=== PATIENT | male | born 1970 ===

== ENCOUNTER 2020-04-15 17:47 | Emergency (ER) | payer SELFPAY ==
[2020-04-15] MEDS ORDERED: Propofol 500 MG/50 ML VIAL ONE (18:14)
--- NOTE | 2020-04-15 18:44 | RAD ---
XR Shoulder Lt 3 View STANDARD: 04/15/2020 6:00 PM CLINICAL INDICATION: Fall with left shoulder pain. COMPARISON: None. FINDINGS: Bones: No acute fracture. Glenohumeral joint: There is anterior inferior dislocation of the humeral head in relationship to the glenoid. AC joint: There is [id number] left AC joint osteoarthrosis. Visualized lung: Clear. Soft tissues: Within normal limits. IMPRESSION: Anterior inferior left glenohumeral dislocation
--- NOTE | 2020-04-15 19:13 | RAD ---
THREE VIEWS OF THE LEFT SHOULDER: 04/15/20 HISTORY: Reduction of shoulder dislocation. FINDINGS: Three views of the left shoulder shows reduction of the previously seen shoulder dislocation. There i s still slight subluxation of the shoulder towards the anterior aspect of the glenohumeral joint. Left thorax is unremarkable. IMPRESSION: Reduction of shoulder dislocation with slight subluxation of the glenohumeral joint. POS: EAA
== END 2020-04-15 19:22 | disposition home or self-care (01) ==
LOC: ERS 17:47
DX: S43.005A Unspecified dislocation of left shoulder joint, initial encounter (principal); B20 Human immunodeficiency virus [HIV] disease; F17.210 Nicotine dependence, cigarettes, uncomplicated; Z79.899 Other long term (current) drug therapy; W19.XXXA Unspecified fall, initial encounter
CPT/HCPCS: 23650; 99152; 99153; J2704